=== PATIENT | female | born 1950 | race African-American/Black ===

== ENCOUNTER 2019-12-15 13:29 | Emergency (ER) | payer MEDICARE, MEDICAID, SELFPAY ==
[2019-12-15] VITALS (7 sets, daily range): BP systolic 126–143; BP diastolic 85–97; PULSE 86–94; RESP 18–80; TEMP 36.6; O2SAT 97–100; BMI 17.2
--- NOTE | 2019-12-15 14:00 | EKG12_ITS ---
Test Reason : Blood Pressure : / mmHG Vent. Rate : 089 BPM Atrial Rate : 089 BPM P-R Int : 114 ms QRS Dur : 054 ms QT Int : 366 ms P-R-T Axes : 087 023 061 degrees QTc Int : 445 ms Normal sinus rhythm Biatrial enlargement Abnormal ECG Confirmed by WILL MISTRY, DAVON ([id number]), manager editorial ADIA CARRIZALES ([id number]) on 12/17/2019 11:03:33 AM Referred By: Confirmed By:DAVON SOLIS MD
[2019-12-15] MEDS: Ipratropium/Albuterol Sulfate 3 ML AMPUL.NEB INHALATION (14:15)
[2019-12-15] MEDS: predniSONE 20 MG Tablet 60 MG PO (14:15)
[2019-12-15 14:19] LABS: Basophil# 0.02 X10^3/uL; Basophil% 0.4 % (0-1); Eosinophils% 2.1 % (0-5); Hematocrit 43.9 % (37-47); Hemoglobin 13.7 g/dL (12.0-15.0); Lymphocyte % 46.8 % (19-41); Mean Corp Hgb Conc 31.2 g/dL (32-36); Mean Corpuscular Hgb 28.5 pg (27.0-32.0); Mean Corpuscular Volume 91.5 fL (81-99); Mean Platelet Vol. 10.6 fl (6.2-12.0); Monocyte# 0.33 X10^3/uL; NRBC Flagged by Analyzer 0 % (0-5); Neutrophil # 2.04 X10^3/uL (2.7-7.7); Neutrophil % 43.5 % (47-70); Platelet Count 261 K/mm3 (150-450); RBC Distribution Width SD 46.7 fl (35.1-43.9); White Blood Count 4.7 K/mm3 (4.4-11.0)
--- NOTE | 2019-12-15 14:26 | RAD_ITS ---
STUDY: X-RAY CHEST REASON FOR EXAM: Female, 68 years old. INCREASE SOB. HX OF COPD TECHNIQUE: Frontal view of the chest COMPARISON: February 03, 2016 FINDINGS: The lungs are clear and severely expanded. There is no demonstrated pleural abnormality. Normal size heart. Normal mediastinum and jodi. Normal visualized pulmonary arteries. Normal visualized aortic arch and descending thoracic aorta. Normal visualized thoracic spine. Normal visualized ribs, clavicles, and shoulders. There is no demonstrated abnormality of the visualized soft tissue structures of the upper abdomen. RAD/Chest 1 View (Portable) IMPRESSION: Severe emphysema. No acute findings. Electronically Signed: Yaima Cedillo, at 15:12 EDT Tel , Service support ,
--- NOTE | 2019-12-15 14:34 | ED.DCSUM_ITS ---
- ER Visit Summary Date of Service: 12/15/19 Chief Complaint: Shortness of breath History of Present Illness: The patient is a 68 F who presents with shortness of breath that is been getting worse over the past 2 weeks. Patient states her breathing is worse with any exertion. Patient states she has been avoiding steps over the past couple weeks because she gets more short of breath going up and down steps. Patient states over the past couple days she is now getting short of breath walking several feet. Patient admits to a cough but denies any sputum production. Patient denies any fevers or chills. Patient does admit to some intermittent chest pain. Patient states this is over the left side of her chest. Patient states she is able to rub the area that hurts and her pain improves. Physical Examination: Vital signs are stable. Patient is afebrile. Patient is in no acute distress. Oral mucosa is pink and moist. Neck is supple. Trachea is midline. There is no JVD. Heart was regular rate and rhythm. Lungs are diminished bilaterally. There is good respiratory effort. Abdomen is soft. Bowel sounds are normal. There is no tenderness. Extremities are intact. There is no calf tenderness or edema. Cranial nerves II through XII are intact. There are no focal motor or sensory deficits noted. Test Results: EKG showed normal sinus rhythm with a rate of 89. There are no acute ST or T wave changes. There is biatrial enlargement. This was unchanged compared to previous EKG dated 02/03/2016. Emergency Department Course and Treatment: Patient was given a DuoNeb aerosol and a dose of prednisone here. Patient was feeling better and then walked to the bathroom. Patient started having more wheezing. Patient was given a repeat albuterol aerosol x2. Patient was feeling better after this. Patient was given a prescription for prednisone. Patient was instructed to continue her inhalers and aerosols as prescribed. Patient was instructed to follow-up with her primary care physician in 5 to 7 days. Patient understood and was agreeable with the plan. All questions were answered. Disposition: Discharge home Impression: COPD exacerbation This note was generated with MarkTendation software. It may contain incorrect words, spelling, and punctuation that were not noted in review of the chart prior to signing ED Disposition - Plan for ED Patient: Disposition: Home or Assisted Living Diagnosis: COPD exacerbation Instructions: ED COPD Flare Prescriptions: Prednisone [Deltasone] 60 mg PO DAILY #15 tab Prescription Printed Referrals: Anuj Bullock MD [Primary Care Provider] - 5-7 Days
[2019-12-15 14:49] LABS: Anion Gap 3 (5-15); BUN 9 mg/dL (7-18); BUN/Creat Ratio 13.6 RATIO (10-20); Calcium,Total 9.2 mg/dL (8.5-10.1); Chloride 104 mmol/L (98-107); Creatinine, Serum 0.66 mg/dL (0.55-1.02); EST Glomerular Filtration Rate 94 mL/min (>60); Est Glom Filt Rate - Afr Amer 114 mL/min (>60); Estimated Creatinine Clearance 38.02 ml/min; Glucose 89 mg/dL (74-106); Potassium 3.9 mmol/L (3.5-5.1); Sodium Level 138 mmol/L (136-145)
[2019-12-15] MEDS: Albuterol 2.5 MG/3 ML VIAL.NEB. INHALATION ×2 (15:24→15:41)
== END 2019-12-15 16:51 | disposition home or self-care (01) ==
PROVIDERS: Emergency Provider Emergency Medicine; PCP Family Medicine
DX: J44.1 Chronic obstructive pulmonary disease with (acute) exacerbation (principal); F17.210 Nicotine dependence, cigarettes, uncomplicated
CPT/HCPCS: 71045; 80048; 84484; 85025; 93005; 94640; 99251; 99285; G0463

== ENCOUNTER → 2020-04-09 12:59 | Outpatient (CLI) | payer MEDICARE, MEDICAID, SELFPAY ==
[2020-01-23 05:53] VITALS: BMI 16.5
--- NOTE | 2020-04-10 17:34 | PFTCOMP ---
COMPLETE PULMONARY FUNCTION TEST INTERPRETATION Brief HPI: Patient is a 69 year old Black female, currently under the care of myself, who presents to [facility] for complete pulmonary function tests secondary to diagnosis of dyspnea. Respiratory therapist reports good effort and reproducible results. Interpretation: Forced expiration spirometry shows a very severe large airways obstructive ventilatory defect with an FEV1 of 35% predicted. There is a significant bronchodilator response in FVC by strict ATS criteria. Spirograms are of good quality and plateau slowly, indicating slowly emptying areas of the lungs. The respiratory flow volume loop shows decreased expiratory flow rates at all lung volumes consistent with airway obstruction. Lung volumes by body plethysmography show a normal total lung capacity at 4.67 L, 97% predicted. FRC and RV are elevated out of proportion. Lung volume measurements are consistent with air-trapping. Diffusion capacity by carbon monoxide is decreased at 33% predicted. The airway resistance is elevated. No previous pulmonary function tests were available for review. Impression: Partially reversible very severe large airways obstructive ventilatory defect with a symmetric reduction diffusion capacity, in a pattern consistent with advanced COPD.
== END ==
PROVIDERS: PCP Family Medicine; Referring Provider Internal Medicine Critical Care Medicine; Visit Provider Internal Medicine Critical Care Medicine
DX: J44.9 Chronic obstructive pulmonary disease, unspecified (principal)
CPT/HCPCS: 94060; 94726; 94729

== ENCOUNTER → 2020-04-10 13:13 | Outpatient (CLI) | payer MEDICARE, MEDICAID, SELFPAY ==
[2020-01-23 05:53] VITALS: BMI 16.5
[2020-04-10 13:30] VITALS: PULSE 103; PULSE 106; PULSE 109; PULSE 110; PULSE 111; PULSE 91; O2SAT 92; O2SAT 94; O2SAT 95; O2SAT 96; O2SAT 97
--- NOTE | 2020-04-10 17:13 | PCM.PSN.6M ---
PSN 6 Minute Walk Test - 6 Minute Walk Test 6 Minute Walk Test: 6 Minute Walk Test PSN:6-Minute Walk Test Start: 04/10/20 14:01 Freq: Status: Active Protocol: RESP.6MINW Document 04/10/20 13:30 EW (Rec: 04/10/20 14:09 EW [id number]) 6 Minute Walk Test Date Performed 04/10/20 Time Performed 13:30 Height 5 ft 4 in Weight: 44.452 kg Weight in Pounds 98.[address]: Ibrahima Camacho Assistive device used: None Pre-test Oxygen Delivery Method Room Air Pulse Ox (%) 94 Pulse Rate (60-100 beats/min) 91 Dyspnea Sánchez Scale (0-10) 3 Exertion Sánchez Scale (6-20) 8 1st minute Oxygen Delivery Method Room Air Pulse Ox (%) 94 Pulse Rate (60-100 beats/min) 103 H 2nd minute Oxygen Delivery Method Room Air Pulse Ox (%) 92 Pulse Rate (60-100 beats/min) 111 H 3rd minute Oxygen Delivery Method Room Air Pulse Ox (%) 92 Pulse Rate (60-100 beats/min) 110 H Number of Rests Taken 1 4th minute Oxygen Delivery Method Room Air Pulse Ox (%) 97 Pulse Rate (60-100 beats/min) 91 5th minute Oxygen Delivery Method Room Air Pulse Ox (%) 96 Pulse Rate (60-100 beats/min) 109 H Reported Symptoms Increased Work of Breathing 6th minute Oxygen Delivery Method Room Air Pulse Ox (%) 95 Pulse Rate (60-100 beats/min) 111 H Reported Symptoms Increased Work of Breathing Post-test Oxygen Delivery Method Room Air Pulse Ox (%) 94 Pulse Rate (60-100 beats/min) 106 H Dyspnea Sánchez Scale (0-10) 7 Exertion Sánchez Scale (6-20) 18 Reported Symptoms Increased Work of Breathing Full Laps Walked 3 Partial Lap, Number of Tiles Walked 8 Total Distance Walked (ft) 185 - Interpretation Interpretation: The patient was able to ambulate only 185 feet over the course of 6 minutes on room air with the assistance of one break. The patient did experience significant desaturation as low as 92% and a peak heart rate of 111 bpm. These findings are consistent with a musculoskeletal limitation exercise tolerance. - Recommendations Recommendations: The patient requires no supplemental oxygen at this time, but this may be secondary to minimal distance traveled. Testing may need to be repeated if exercise tolerance is typically better than this.
== END ==
PROVIDERS: PCP Family Medicine; Referring Provider Internal Medicine Critical Care Medicine; Visit Provider Internal Medicine Critical Care Medicine
DX: J44.9 Chronic obstructive pulmonary disease, unspecified (principal)
CPT/HCPCS: 94618

== ENCOUNTER → 2020-04-21 16:11 | Outpatient (CLI) | payer MEDICARE, MEDICAID, SELFPAY ==
[2020-04-14 14:36] VITALS: BMI 16.8
[2020-04-21 16:57] LABS: Absolute Lymphocyte Count 2.92 X10^3/uL (0.83-4.51); Absolute Neutrophil Count 1.8 X10^3/uL (2.0-7.7); Basophil# 0.03 X10^3/uL; Basophil% 0.6 % (0-1); Eosinophils% 1.9 % (0-5); Hematocrit 38.4 % (37-47); Hemoglobin 11.7 g/dL (12.0-15.0); Lymphocyte # 2.92 X10^3/ul (4.0); Lymphocyte % 55.4 % (19-41); Mean Corp Hgb Conc 30.5 g/dL (32-36); Mean Corpuscular Hgb 27.6 pg (27.0-32.0); Mean Corpuscular Volume 90.6 fL (81-99); Mean Platelet Vol. 10.4 fl (6.2-12.0); Monocyte# 0.42 X10^3/uL; NRBC Flagged by Analyzer 0 % (0-5); Neutrophil # 1.79 X10^3/uL (2.7-7.7); Neutrophil % 33.9 % (47-70); Platelet Count 281 K/mm3 (150-450); RBC Distribution Width CV 13.4 % (11.6-14.6); RBC Distribution Width SD 45.1 fl (35.1-43.9); Red Blood Count 4.24 M/mm3 (4.2-5.4); White Blood Count 5.3 K/mm3 (4.4-11.0)
[2020-04-24 20:08] LABS: Alternaria alternata <0.10 kU/L (Class 0); Bermuda Grass <0.10 kU/L (Class 0); Bluegrass, Kentucky <0.10 kU/L (Class 0); Cat Hair/Dander, Standard <0.10 kU/L (Class 0); D farinae Mite <0.10 kU/L (Class 0); D pteronyssinus <0.10 kU/L (Class 0); Dog Epithelia <0.10 kU/L (Class 0); Elm, American White 0.17 kU/L (Class 0/I); Mouse Urine <0.10 kU/L (Class 0); Oak, White <0.10 kU/L (Class 0); Plantain, English <0.10 kU/L (Class 0); Ragweed, Short/Common 0.52 kU/L (Class I)
[2020-04-24 22:14] LABS: ANTINUCLEAR ANTIBODIES DIRECT Negative (Negative)
[2020-04-25 16:08] LABS: Aspirgillus flavus Negative (Neg:<1:1); Aspirgillus fumigatus Negative (Neg:<1:1); Aspirgillus niger Negative (Neg:<1:1)
[2020-04-27 04:38] LABS: Immunoglobulin E 36 IU/mL (6-495)
== END ==
PROVIDERS: PCP Family Medicine; Visit Provider Nurse Practitioner Acute Care
DX: R06.00 Dyspnea, unspecified (principal); J47.9 Bronchiectasis, uncomplicated
CPT/HCPCS: 36415; 82785; 85025; 86003; 86038; 86225; 86235; 86606

== ENCOUNTER → 2020-04-22 11:16 | Outpatient (CLI) | payer MEDICARE, MEDICAID, SELFPAY ==
[2020-04-14 14:36] VITALS: BMI 16.8
--- NOTE | 2020-04-22 11:19 | RAD_ITS ---
STUDY: X-RAY CHEST REASON FOR EXAM: Female, 69 years old. COPD, now having anterior left side chest pain goes to the posterior side as well TECHNIQUE: Frontal and lateral views of the chest. COMPARISON: 12/15/2019 FINDINGS: Pulmonary hyperinflation without acute alveolar disease. There is no demonstrated pleural abnormality. Normal size heart. Normal mediastinum and jodi. Normal visualized pulmonary arteries. Normal visualized aortic arch and descending thoracic aorta. Normal visualized thoracic spine. Normal visualized ribs, clavicles, and shoulders. There is no demonstrated abnormality of the visualized soft tissue structures of the upper abdomen. RAD/Chest PA and Lateral IMPRESSION: Pulmonary hyperinflation without acute alveolar disease. Electronically Signed: Marcus Garzon MD at 21:35 EST Tel , Service support ,
[2020-04-22 12:12] LABS: Absolute Lymphocyte Count 2.62 X10^3/uL (0.83-4.51); Absolute Neutrophil Count 1.6 X10^3/uL (2.0-7.7); Basophil# 0.03 X10^3/uL; Basophil% 0.6 % (0-1); Eosinophils% 2.1 % (0-5); Hematocrit 37.7 % (37-47); Hemoglobin 11.4 g/dL (12.0-15.0); Lymphocyte # 2.62 X10^3/ul (4.0); Lymphocyte % 55.9 % (19-41); Mean Corp Hgb Conc 30.2 g/dL (32-36); Mean Corpuscular Hgb 27.7 pg (27.0-32.0); Mean Corpuscular Volume 91.7 fL (81-99); Mean Platelet Vol. 10.6 fl (6.2-12.0); Monocyte# 0.36 X10^3/uL; Monocyte% 7.7 % (0-10); NRBC Flagged by Analyzer 0 % (0-5); Neutrophil # 1.56 X10^3/uL (2.7-7.7); Neutrophil % 33.3 % (47-70); Platelet Count 244 K/mm3 (150-450); RBC Distribution Width CV 13.3 % (11.6-14.6); RBC Distribution Width SD 45.2 fl (35.1-43.9); Red Blood Count 4.11 M/mm3 (4.2-5.4); White Blood Count 4.7 K/mm3 (4.4-11.0)
[2020-04-22 13:07] LABS: Anion Gap 4 (5-15); BUN 14 mg/dL (7-18); BUN/Creat Ratio 20.3 RATIO (10-20); Chloride 104 mmol/L (98-107); Creatinine, Serum 0.69 mg/dL (0.55-1.02); EST Glomerular Filtration Rate 90 mL/min (>60); Est Glom Filt Rate - Afr Amer 108 mL/min (>60); Glucose 86 mg/dL (74-106); Potassium 3.9 mmol/L (3.5-5.1); Sodium Level 139 mmol/L (136-145)
== END ==
PROVIDERS: PCP Family Medicine; Referring Provider Family Medicine; Visit Provider Family Medicine
DX: J44.9 Chronic obstructive pulmonary disease, unspecified (principal); R07.9 Chest pain, unspecified
CPT/HCPCS: 36415; 71046; 80048; 84484; 85025

== ENCOUNTER → 2020-10-14 13:49 | Outpatient (CLI) | payer MEDICARE, SELFPAY ==
--- NOTE | 2020-10-14 13:51 | BI_ITS ---
MAMMOGRAPHY - BILATERAL SCREENING REASON FOR EXAM: Female, 69 years old. Routine annual screening examination. PERTINENT HISTORY: Non-contributory. TECHNIQUE: Digital bilateral breast sabina (3D mammographic acquisition) in the CC and MLO projections. 2-D mediolateral oblique (MLO) and craniocaudad (CC) views of both breasts were obtained. CAD: Full Field Digital Mammography with Computer Added Detection was performed. COMPARISON: Comparison is made with prior examination dated 01/25/2016 and 01/20/2015. FINDINGS: Breast Composition: The breasts are heterogeneously dense, which may obscure small masses. There are no dominant masses or suspicious calcifications. Stable bilateral calcifications. No other significant abnormalities are identified. There has been no significant change since the prior study. BI/SCRN MAMM (CAD)W/SABINA BILAT IMPRESSION: Stable bilateral screening mammogram. Yearly follow-up mammogram recommended. (A) ASSESSMENT CATEGORY: BIRADS Category 2: Benign. A letter regarding these results will be sent to the patient by the facility within 30 days. Approximately 10% of breast cancers are not detected by mammography. A normal mammogram should not delay biopsy of a clinically suspicious abnormality. [id number] Electronically Signed: Shane Anguiano MD at 15:11 EDT , Service support ,
== END ==
PROVIDERS: PCP Family Medicine; Referring Provider Family Medicine; Visit Provider Family Medicine
DX: Z12.31 Encounter for screening mammogram for malignant neoplasm of breast (principal)
CPT/HCPCS: 77063; 77067